=== PATIENT | female | born 1950 | race Caucasian/White ===

== ENCOUNTER 2016-12-05 09:46 | Outpatient (CLI) | payer OTHER ==
[~2016-12-05 09:46] MED LIST: AMLO5TAB4 PO; ASA81 PO; CANA300T PO; GLYB5TAB7 PO; LEVO25TA7 PO; LIP40 PO; LISI30TA36 PO; METF-510 PO; OMEP20CA10 PO
== END 2016-12-05 18:59 | disposition home or self-care (01) ==
LOC: SMA 09:46
PROVIDERS: ATTEND General Practice
DX: Z12.31 Encounter for screening mammogram for malignant neoplasm of breast (principal)
CPT/HCPCS: G0202

== ENCOUNTER → 2017-01-15 | Outpatient (CLI) | payer OTHER | END | disposition home or self-care (01) | LOC: SDS 09:57 | PROVIDERS: ATTEND General Practice | DX: C50.911 Malignant neoplasm of unspecified site of right female breast (principal); N60.01 Solitary cyst of right breast; Z90.11 Acquired absence of right breast and nipple | CPT/HCPCS: 76641 ==

== ENCOUNTER 2017-12-09 10:56 | Outpatient (CLI) | payer OTHER | END 2017-12-09 20:47 | disposition home or self-care (01) | LOC: SMA 10:56 | PROVIDERS: ATTEND General Practice | DX: Z12.31 Encounter for screening mammogram for malignant neoplasm of breast (principal); R92.1 Mammographic calcification found on diagnostic imaging of breast | CPT/HCPCS: 77067 ==